=== PATIENT | female | born 1950 | race Caucasian/White ===

== ENCOUNTER 2018-10-26 12:08 | Emergency (ER) | payer MEDICARE ==
[~2018-10-26] VITALS: Ht 160 cm; Wt 69.0 kg
[2018-10-26 12:16] VITALS: BP 130/82
[2018-10-26] MEDS ORDERED: DICLOFENAC SODI75 MG PO (12:19)
[2018-10-26] MEDS ORDERED: OMEPRAZOLE 20 M20 M1 PO (12:19)
[2018-10-26] MEDS ORDERED: ESTRADIOL 1 MG T1 M1 PO (12:19)
[2018-10-26] MEDS ORDERED: NIACIN 100MG T100 M1 PO (12:19)
[2018-10-26] MEDS ORDERED: KEFLEX500 M1 PO (12:32)
== END 2018-10-26 12:42 | disposition home or self-care (01) ==
LOC: M.ERS 12:08
DX: S01.01XA Laceration without foreign body of scalp, initial encounter (principal); Z98.890 Other specified postprocedural states; Z90.710 Acquired absence of both cervix and uterus; Z88.2 Allergy status to sulfonamides; W22.8XXA Striking against or struck by other objects, initial encounter; Y93.89 Activity, other specified; Y92.89 Other specified places as the place of occurrence of the external cause; Y99.8 Other external cause status

== ENCOUNTER → 2019-03-13 | Outpatient (CLI) | payer OTHER ==
[~2019-03-13] MED LIST: DICLOFENAC SODI75 MG PO; ESTRADIOL 1 MG T1 M1 PO; KEFLEX500 M1 PO; NIACIN 100MG T100 M1 PO; OMEPRAZOLE 20 M20 M1 PO
== END ==
LOC: M.CT 08:21
DX: Z13.6 Encounter for screening for cardiovascular disorders (principal)